=== PATIENT | female | born 1940 | race Caucasian/White ===

== ENCOUNTER → 2018-03-05 08:48 | Outpatient (CLI) | payer MEDICARE, OTHER, SELFPAY ==
--- NOTE | 2018-03-05 08:56 | CDU_ITS ---
Reason For Study: Carotid stenosis Rt. Velocities/BP Lt. Velocities/BP Prox CCA 118.0/23.5 cm/sec. Prox CCA 85.6/24.0 cm/sec. Mid CCA 120.0/21.7 cm/sec. Mid CCA 76.2/19.3 cm/sec. Dist CCA 96.2/24.0 cm/sec. Dist CCA 91.5/19.3 cm/sec. Prox ICA 234.0/62.9 cm/sec. Prox ICA 139.0/36.3 cm/sec. Mid ICA 158.0/28.4 cm/sec. Mid ICA 80.0/23.8 cm/sec. Dist ICA 95.4/27.2 cm/sec. Dist ICA 89.1/21.2 cm/sec. Rt. ICA/CCA = 1.9. Lt. ICA/CCA = 1.8. Prox ECA 190.0/19.4 cm/sec. Prox ECA 172.0/13.7 cm/sec. Rt. Vert. 185.0/30.4 cm/sec. Right Extracranial There is heterogeneous, irregular atherosclerotic plaque noted in the right common carotid artery. There is heterogeneous, irregular atherosclerotic plaque noted in the right internal carotid artery. There is heterogeneous, irregular atherosclerotic plaque noted in the right external carotid artery. Left Extracranial There is heterogeneous, irregular atherosclerotic plaque noted in the left common carotid artery. There is heterogeneous, smooth atherosclerotic plaque noted in the left internal carotid artery. There is heterogeneous, irregular atherosclerotic plaque noted in the left external carotid artery. LTVERTartery is retrograde. Procedure Carotid Duplex [id number]. Exam performed in department. Interpretation Summary Moderate (50-69%) stenosis right extracranial internal carotid. Moderate (50-69%) stenosis left extracranial internal carotid. Flow within the right verterbral artery is antegrade. Flow within the left verterbral artery is retrograde, consistent with a subclavian steal phenomenon. Ordering Physician: ABEBA PULLIAM Referring Physician: Flory Slaughter M.D. Performed By: Barbara Guardado RVT
== END ==
PROVIDERS: Family Provider Internal Medicine; PCP Internal Medicine; Referring Provider Surgery Vascular Surgery; Visit Provider Surgery Vascular Surgery
DX: I65.23 Occlusion and stenosis of bilateral carotid arteries (principal)
CPT/HCPCS: 93880

== ENCOUNTER → 2018-08-19 | Outpatient (CLI) | payer MEDICARE, OTHER, SELFPAY ==
[2018-08-19 15:54] LABS: CRP < 2.90 mg/L (0.0-3.0)
[2018-08-21 16:07] LABS: Endomysial Antibody IgA Negative (Negative)
[2018-08-23 14:04] LABS: Immunoglobulin A 81 mg/dL (64-422); t-Transglutaminase IgA <2 U/mL (0-3)
== END | disposition home or self-care (01) ==
LOC: MTLAB 13:48
PROVIDERS: Family Provider Internal Medicine; PCP Internal Medicine; Referring Provider Internal Medicine Gastroenterology; Visit Provider Internal Medicine Gastroenterology
DX: R19.7 Diarrhea, unspecified (principal)
CPT/HCPCS: 36415; 82784; 83516; 86140; 86255

== ENCOUNTER → 2018-12-21 14:18 | Outpatient (CLI) | payer MEDICARE, OTHER, SELFPAY ==
--- NOTE | 2018-12-21 14:29 | RAD_ITS ---
STUDY: X-RAY - LEFT ANKLE REASON FOR EXAM: Female, 78 years old. Pain. TECHNIQUE: 3 view(s) of the ankle. COMPARISON: None. FINDINGS: Normal visualized distal tibia and fibula. Normal medial and lateral malleoli. Normal tibiotalar articulation and ankle mortise. Small spur at insertion of the Achilles tendon. The visualized subtalar, talonavicular, calcaneocuboid and tarsal articulations are normal. The soft tissue structures are unremarkable. RAD/Ankle min 3 Views IMPRESSION: Soft tissue swelling. Electronically Signed: Emilio Miller, at 8:54 EDT , Service support ,
== END ==
PROVIDERS: Family Provider Internal Medicine; PCP Internal Medicine; Referring Provider Nurse Practitioner; Visit Provider Nurse Practitioner
DX: M25.572 Pain in left ankle and joints of left foot (principal)
CPT/HCPCS: 73610

== ENCOUNTER → 2019-03-30 | Outpatient (CLI) | payer MEDICARE, OTHER, SELFPAY ==
[2019-03-30 17:51] LABS: Protein, Urine (Random) 22.4 mg/dL (<11.9); Protein:Creat Ratio 720 mg/g CRE (0-200)
== END | disposition home or self-care (01) ==
LOC: POLAB3 15:02 → LABSPEC 15:03
PROVIDERS: PCP Internal Medicine; Visit Provider Internal Medicine Nephrology
DX: N18.3 Chronic kidney disease, stage 3 (moderate) (principal)
CPT/HCPCS: 82570; 84156

== ENCOUNTER → 2019-03-31 13:21 | Outpatient (CLI) | payer MEDICARE, OTHER, SELFPAY ==
--- NOTE | 2019-03-31 13:26 | US_ITS ---
STUDY: RENAL ULTRASOUND - COMPLETE REASON FOR EXAM: Female, 78 years old. Case 3 chronic kidney disease TECHNIQUE: Ultrasound evaluation of the kidneys was performed with real-time and static last-scale imaging. COMPARISON: None. FINDINGS: RIGHT KIDNEY: Normal location of the right kidney, which is normal in size. The right kidney measures 8.7 x 4.0 x 3.5 cm. There is diffuse thinning of the renal cortex. The renal cortex measures 1.0 cm. There is no right renal mass or cyst. There are no right renal calculi. There is no right hydronephrosis. DISTAL RIGHT URETER: There is non-visualization of the distal right ureter. There is no demonstrated right ureterovesical junction calculus. There is a visualized right ureteral jet. LEFT KIDNEY: Normal location of the left kidney, which is normal in size. The left kidney measures 9.1 x 3.6 x 4.3 cm. There is diffuse thinning of the renal cortex. The renal cortex measures 1.2 cm. Anechoic cortical cyst of the left kidney measures 1.1 cm. There are no left renal calculi. There is no left hydronephrosis. DISTAL LEFT URETER: There is non-visualization of the distal left ureter. There is no demonstrated left ureterovesical junction calculus. There is a visualized left ureteral jet. BLADDER: The urinary bladder is nondistended. There is no demonstrated mass within the urinary bladder. There are no demonstrated bladder calculi. US/Kidney and Bladder IMPRESSION: 1. No hydronephrosis. 2. Bilateral renal cortical thinning compatible with history provided of chronic kidney disease. 3. Simple left renal cyst. Electronically Signed: Klaus Aldrich MD ([place]) at 12:05 EST , Service support ,
== END ==
PROVIDERS: PCP Internal Medicine; Referring Provider Internal Medicine Nephrology; Visit Provider Internal Medicine Nephrology
DX: N18.3 Chronic kidney disease, stage 3 (moderate) (principal)
CPT/HCPCS: 76770

== ENCOUNTER → 2019-04-28 12:03 | Outpatient (CLI) | payer MEDICARE, OTHER, SELFPAY ==
[2019-04-28 12:46] LABS: Hematocrit 45.5 % (37-47); Hemoglobin 14.9 g/dL (12.0-15.0); Mean Corp Hgb Conc 32.7 g/dL (32-36); Mean Corpuscular Hgb 28.4 pg (27.0-32.0); Mean Corpuscular Volume 86.8 fL (81-99); Mean Platelet Vol. 10.5 fl (6.2-12.0); Platelet Count 205 K/mm3 (150-450); RBC Distribution Width CV 14.3 % (11.6-14.6); RBC Distribution Width SD 45.3 fl (35.1-43.9); Red Blood Count 5.24 M/mm3 (4.2-5.4); White Blood Count 6.1 K/mm3 (4.4-11.0)
[2019-04-28 13:09] LABS: PTHIN 156.6 pg/mL (18.4-80.1)
[2019-04-28 13:10] LABS: BUN 33 mg/dL (7-18); BUN/Creat Ratio 19.9 RATIO (10-20); Calcium,Total 9.2 mg/dL (8.5-10.1); Chloride 105 mmol/L (98-107); Creatinine, Serum 1.66 mg/dL (0.55-1.02); EST Glomerular Filtration Rate 32 mL/min (>60); Est Glom Filt Rate - Afr Amer 39 mL/min (>60); Glucose 140 mg/dL (74-106); Phosphorus 3.5 mg/dL (2.5-4.9); Potassium 3.8 mmol/L (3.5-5.1); Sodium Level 139 mmol/L (136-145)
[2019-04-28 13:14] LABS: 24 Hour Urine Protein 513.4 mg/24HR (<150 MG/24HR); 24HR. UA Prot. Total Volume 1575 mL; Urine Protein (24 Hour) 32.6 mg/dL (<11.9)
[2019-04-28 13:16] LABS: Creat.Clear Total Volume 1575 mL; Creatinine Clearance 30 ml/min (100-200); Creatinine Serum Creat 1.7 mg/dL (0.6-1.0); Creatinine Urine 45.9 mg/dL (NO RANGE EST.); EST Glomerular Filtration Rate 32 mL/min (>60); Est Glom Filt Rate - Afr Amer 39 mL/min (>60)
== END ==
LOC: LABSPEC 12:05 → LAB 12:54
PROVIDERS: PCP Internal Medicine; Referring Provider Internal Medicine Nephrology; Visit Provider Internal Medicine Nephrology
DX: N18.3 Chronic kidney disease, stage 3 (moderate) (principal)
CPT/HCPCS: 36415; 80069; 81050; 82575; 83970; 84156; 85027

== ENCOUNTER → 2019-07-20 12:52 | Outpatient (CLI) | payer MEDICARE, OTHER, SELFPAY ==
--- NOTE | 2019-07-20 12:58 | CDU_ITS ---
Reason For Study: carotid stenosis Rt. Velocities/BP Lt. Velocities/BP Prox CCA 113.8/14.7 cm/sec. Prox CCA 74.0/16.8 cm/sec. Mid CCA 117.8/18.6 cm/sec. Mid CCA 88.2/21.2 cm/sec. Dist CCA 95.6/16.0 cm/sec. Dist CCA 88.2/24.5 cm/sec. Prox ICA 252.0/55.2 cm/sec. Prox ICA 127.9/24.8 cm/sec. Mid ICA 179.5/29.3 cm/sec. Mid ICA 132.3/24.8 cm/sec. Dist ICA 182.1/39.6 cm/sec. Dist ICA 81.4/18.2 cm/sec. Rt. ICA/CCA = 2.1. Lt. ICA/CCA = 1.5. Prox ECA 179.5/16.3 cm/sec. Prox ECA 147.7/5.0 cm/sec. Rt. Vert. 107.0/16.3 cm/sec. Right Extracranial There is heterogeneous, irregular atherosclerotic plaque noted in the right common carotid artery. There is heterogeneous, irregular atherosclerotic plaque noted in the right internal carotid artery. There is heterogeneous, irregular atherosclerotic plaque noted in the right external carotid artery. Antegrade flow is noted in the right vertebral artery. Left Extracranial There is heterogeneous, irregular atherosclerotic plaque noted in the left common carotid artery. There is heterogeneous, irregular atherosclerotic plaque noted in the left internal carotid artery. There is heterogeneous, irregular atherosclerotic plaque noted in the left external carotid artery. Retrograde flow noted in the left vertebral artery. Procedure Carotid Duplex [id number]. The exam was diagnostic. Exam performed in department. Interpretation Summary Severe (>70%) stenosis right extracranial internal carotid. Mild (<50%) stenosis left extracranial internal carotid. Flow within the right verterbral artery is antegrade. Flow within the left verterbral artery is retrograde, consistent with a subclavian steal phenomenon. Ordering Physician: Gricelda Rooney Performed By: Gustavo Alvarez RVT
== END ==
PROVIDERS: PCP Internal Medicine; Referring Provider Nurse Practitioner Primary Care; Visit Provider Nurse Practitioner Primary Care
DX: I65.23 Occlusion and stenosis of bilateral carotid arteries (principal)
CPT/HCPCS: 93880

== ENCOUNTER → 2019-09-08 13:06 | Outpatient (CLI) | payer MEDICARE, OTHER, SELFPAY ==
[2019-09-08 16:24] LABS: Protein, Urine (Random) 89.8 mg/dL (<11.9); Protein:Creat Ratio 702 mg/g CRE (0-200)
[2019-09-08 16:30] LABS: Albumin, Serum 3.8 g/dL (3.2-5.0); BUN 34 mg/dL (7-18); BUN/Creat Ratio 18.9 RATIO (10-20); Calcium,Total 8.9 mg/dL (8.5-10.1); Chloride 107 mmol/L (98-107); EST Glomerular Filtration Rate 29 mL/min (>60); Est Glom Filt Rate - Afr Amer 35 mL/min (>60); Glucose 183 mg/dL (74-106); Phosphorus 3.6 mg/dL (2.5-4.9); Potassium 3.7 mmol/L (3.5-5.1); Sodium Level 140 mmol/L (136-145)
== END ==
PROVIDERS: PCP Internal Medicine; Referring Provider Internal Medicine Nephrology; Visit Provider Internal Medicine Nephrology
DX: N18.3 Chronic kidney disease, stage 3 (moderate) (principal); R80.9 Proteinuria, unspecified
CPT/HCPCS: 36415; 80069; 82570; 84156

== ENCOUNTER → 2019-11-03 15:35 | Outpatient (CLI) | payer MEDICARE, OTHER, SELFPAY ==
[2019-11-03 19:03] LABS: Protein, Urine (Random) 106.5 mg/dL (<11.9); Protein:Creat Ratio 2500 mg/g CRE (0-200)
[2019-11-03 19:26] LABS: Albumin, Serum 3.6 g/dL (3.2-5.0); BUN 26 mg/dL (7-18); Calcium,Total 8.6 mg/dL (8.5-10.1); Chloride 102 mmol/L (98-107); Creatinine, Serum 1.37 mg/dL (0.55-1.02); EST Glomerular Filtration Rate 40 mL/min (>60); Est Glom Filt Rate - Afr Amer 48 mL/min (>60); Glucose 115 mg/dL (74-106); Phosphorus 3.1 mg/dL (2.5-4.9); Potassium 3.9 mmol/L (3.5-5.1); Sodium Level 137 mmol/L (136-145)
== END ==
PROVIDERS: PCP Internal Medicine; Referring Provider Internal Medicine Nephrology; Visit Provider Internal Medicine Nephrology
DX: N18.3 Chronic kidney disease, stage 3 (moderate) (principal); R80.9 Proteinuria, unspecified
CPT/HCPCS: 36415; 80069; 82570; 84156

== ENCOUNTER 2019-12-24 14:39 | Emergency (ER) | payer MEDICARE, OTHER, SELFPAY ==
[2019-12-24] VITALS (9 sets, daily range): BP systolic 106–230; BP diastolic 51–94; PULSE 73–106; RESP 18–25; TEMP 36.6; O2SAT 95–99; BMI 31.8; BMI 32.8
--- NOTE | 2019-12-24 14:45 | RAD_ITS ---
STUDY: X-RAY CHEST REASON FOR EXAM: Female, 79 years old. Shortness of breath TECHNIQUE: Single AP portable view of the chest. COMPARISON: None. FINDINGS: EKG electrodes are seen. Hyperinflation. The lungs are clear. There is no demonstrated pleural abnormality. Normal size heart. Normal mediastinum and carmela. Normal visualized pulmonary arteries. Normal visualized aortic arch and descending thoracic aorta. There are degenerative changes of the visualized thoracic spine. Normal visualized ribs, clavicles, and shoulders. There is no demonstrated abnormality of the visualized soft tissue structures of the upper abdomen. RAD/Chest 1 View IMPRESSION: Hyperinflation. Electronically Signed: Emilio Miller, at 15:27 EDT , Service support ,
--- NOTE | 2019-12-24 14:45 | CT_ITS ---
STUDY: CT BRAIN WITHOUT CONTRAST REASON FOR EXAM: Female, 79 years old. STROKE/DIZZY/WEAK RADIATION DOSAGE (If Supplied By Facility): CTDIvol = ( 44.99 ) mGy, DLP = ( 796.11 ) mGycm TECHNIQUE: Transaxial CT imaging of the brain was performed without administration of intravenous contrast material. Individualized dose optimization techniques were used for this CT. COMPARISON: No relevant priors. FINDINGS: Normal soft tissue structures. Normal calvarium. There is mild cerebral atrophy with widening of the extra-axial spaces and ventricular dilatation. There are areas of decreased attenuation within the white matter tracts of the supratentorial brain, consistent with microvascular disease changes. Normal basal ganglia and thalami. Normal brainstem. Normal cerebellum. There is no intracranial hemorrhage. There are no findings of an acute ischemic infarction. Normal visualized paranasal sinuses. CT/Brain/Head without Contrast IMPRESSION: Chronic involutional changes of the brain. Electronically Signed: Emilio Miller, at 15:21 EDT , Service support ,
--- NOTE | 2019-12-24 14:45 | EKG12_ITS ---
Test Reason : Blood Pressure : / mmHG Vent. Rate : 080 BPM Atrial Rate : 080 BPM P-R Int : 136 ms QRS Dur : 084 ms QT Int : 398 ms P-R-T Axes : 059 -19 032 degrees QTc Int : 459 ms Normal sinus rhythm Minimal voltage criteria for LVH, may be normal variant Borderline ECG Confirmed by ADALBERTO CAUSEY, CECELIA ([id number]), editor in chief MALIK VILLAFANA ([id number]) on 12/28/2019 11:13:44 AM Referred By: MOOSE Confirmed By:CECELIA GLOVER MD
--- NOTE | 2019-12-24 15:06 | ED.VIS.GEN ---
History of Present Illness Informant: Patient Onset: Days Narrative: 79 year old female with PMH HTN, HLD, CKD, left carotid endarterectomy presents with vision changes and left arm weakness x1 week. One week ago she started having has intermittent blurry vision in both eyes. No complete vision loss or diplopia. She also noticed that her left hand is weak and she has been dropping her coffee cup. She is right-hand dominant. Denies paresthesia, numbness, or tingling. No leg weakness although she did fall 1 week ago but attributes this to tripping over her dog. No head injury or LOC. Today she felt confused when dialing her friend's phone number. Denies headache, nausea, vomiting, chest pain, shortness of breath, abdominal pain, or diarrhea. No history of stroke/TIA. She was told she needs a right carotid endarterectomy. <Saskia Prather - Last Filed: 12/24/19 16:46> <Theodore Hollins - Last Filed: 12/24/19 16:56> Chief Complaint: Neuro S/Sx Past Medical History Past Medical History: - - hypertension, hyperlipidemia, chronic kidney disease, L carotid endarterectomy Surgical History: total hip arthroplasty, total knee arthroplasty Smoking Status: Never smoker <Saskia Prather - Last Filed: 12/24/19 16:46> <Theodore Hollins - Last Filed: 12/24/19 16:56> - Allergies and Home Meds Allergies/Adverse Reactions: Allergies No Known Allergies Allergy (Verified 12/24/19 14:44) Primary Care Physician: Flory Slaughter DO [Primary Care Provider] - Review of Systems General: Denies: Chills, Fever, Sweats Eyes: Reports: Blurred Vision - bilaterally. Denies: Diplopia ENT: Denies: Rhinorrhea, Sore throat Cardiovascular: Denies: Chest pain, Palpitations Respiratory: Denies: Dyspnea, Cough, Dyspnea on exertion Gastrointestinal: Denies: Abdominal pain, Nausea, Vomiting, Diarrhea, Melena, Hematochezia Genitourinary: Denies: Dysuria, Hematuria, Frequency Musculoskeletal: Denies: Neck pain, Back pain, Extremity Pain Skin: Denies: Rash, Wounds Neurological: Reports: Weakness. Denies: Headache, Parasthesia, Numbness <Saskia Prather - Last Filed: 12/24/19 16:46> Physical Exam Vital Signs/Narrative: Vital Signs Temp Pulse Resp BP Pulse Ox 12/24/19 14:40 97.8 F 85 18 222/94 H 97 Inital Vital Signs reviewed: Yes General: Well nourished, Well developed, No Acute Distress Head: Normocephalic, Atraumatic Eyes: Perrl, EOMI, - - visual hodges intact ENT: Moist mucous membranes, No rhinorrhea Neck: Supple, Nontender Cardiovascular: Regular rate, Regular rhythm, No murmurs Respiratory: No distress, CTA bilaterally, Chest nontender Abdomen: Soft, Nontender, Nondistended Back: Nontender, Normal Inspection Extremities: Nontender, No edema Skin: Normal color, No rash Neurological: Alert, Oriented x3, Cranial nerves II-XII grossly intact, Normal Sensation, - - 4/5 left elementary math tutor strength, otherwise normal strength in bilateral UE/LE. Sensation intact. No UE/LE drift. Psychological: Normal affect, Normal Mood <Saskia Prather - Last Filed: 12/24/19 16:46> Vital Signs/Narrative: Vital Signs Temp Pulse Resp BP Pulse Ox 12/24/19 16:15 80 18 106/71 96 12/24/19 15:39 77 18 163/70 H 95 12/24/19 15:15 80 25 H 158/72 H 96 12/24/19 14:40 97.8 F 85 18 222/94 H 97 <Theodore Hollins - Last Filed: 12/24/19 16:56> Diagnostic/Tx/Re-eval Clinical Impression(s) from Imaging Studies Brain CT 12/24/19 14:45 IMPRESSION: Chronic involutional changes of the brain. Electronically Signed: Emilio Miller, at 15:21 EDT , Service support , Chest X-Ray 12/24/19 14:45 IMPRESSION: Hyperinflation. Electronically Signed: Emilio Miller, at 15:27 EDT , Service support , Laboratory Data 12/24/19 12/24/19 12/24/19 15:00 15:00 15:00 WBC 9.0 RBC 5.13 Hgb 14.7 Hct 45.3 MCV 88.3 MCH 28.7 MCHC 32.5 RDW Std Deviation 42.9 RDW Coeff of Nimo 13.3 Plt Count 282 MPV 10.2 Immature Gran % (Auto) 0.400 Neut % (Auto) 69.0 Lymph % (Auto) 22.3 Sumner % (Auto) 6.3 Eos % (Auto) 1.3 Baso % (Auto) 0.7 Absolute Neuts (auto) 6.2 Absolute Lymphs (auto) 2.01 Nucleated RBC % 0 PT 12.3 INR 1.0 APTT 26.5 Sodium 138 Potassium 3.8 Chloride 102 Carbon Dioxide 27.0 Anion Gap 9 BUN 28 H Creatinine 1.59 H Estim Creat Clear Calc 23.44 Est GFR (MDRD) Af Amer 40 L Est GFR (MDRD) Non-Af 33 L BUN/Creatinine Ratio 17.6 Glucose 215 H Calcium 9.7 Troponin I < 0.015 - Rhythm Strip Rhythm Strip: Sinus Rhythm Rate: 80 - borderline LVH, may be normal variant - Medical Decision Making Patient presented with 1 week of intermittent blurry vision, left hand weakness, and episodes of confusion. Vital signs show BP of 222/94, otherwise normal. BP improved to 163/70 without intervention. She has 4/5 left elementary math tutor strength, otherwise normal neurological exam. NIH is zero. Labs shows creatinine of 1.6 which is baseline, otherwise within normal limits. CT head is negative for acute process. CXR normal. Patient's carotid duplex from 07/13 was reviewed which showed > 70% in [place]. This is most likely the etiology of her left sided symptoms. She needs admitted for a stroke work up and since her vascular surgeon is at [facility] I feel it is best she is transferred there. Patient was accepted by the hospitalist, Dr. Daly, and was transferred to [facility] in stable condition. <Saskia Prather - Last Filed: 12/24/19 16:46> - Medical Decision Making Patient was seen with me. I did a [id number] examination with the patient. Patient presents with 1 week history of blurry vision, and left hand weakness. Patient has a history of right carotid stenosis and is being followed by vascular surgeon at [facility]. Patient states they have been putting off having a right carotid endarterectomy because of her kidney disease. Patient states she had a left carotid endarterectomy 3 to 4 years ago. Patient states she has been dropping things with her left hand. Patient also admits to some tingling in both years. Patient denies any difficulty breathing or difficulty swallowing. Patient denies any leg weakness. Vital signs are stable. Patient is afebrile. Patient is in no acute distress. Oral mucosa is pink and moist. Neck is supple. Trachea is midline. There is no JVD. Heart was regular rate and rhythm. Lungs are clear and equal bilaterally. Abdomen is soft. Bowel sounds are normal. Cranial nerves II through XII are intact. Strength is 5/5 bilateral in the upper and lower extremities. There are no sensory deficits noted. CT scan of the brain was obtained. There is no acute intracranial abnormality noted. This was interpreted by the radiologist and reviewed by myself. Chest x-ray was obtained and did not show any acute cardiopulmonary process. CBC and metabolic profile were obtained. Creatinine was slightly elevated but is consistent with prior results. Case was discussed with the transfer center at [facility]. Patient will be transferred there under the service of Dr Daly. Patient understands and is agreeable with the plan. All questions were answered. <Theodore Hollins - Last Filed: 12/24/19 16:56> ED Disposition <Saskia Prather - Last Filed: 12/24/19 16:46> <Theodore Hollins - Last Filed: 12/24/19 16:56> - Plan for ED Patient: Disposition: [facility] Diagnosis: CVA (cerebral vascular accident), Carotid stenosis, right Referrals: Flory Slaughter DO [Primary Care Provider] -
[2019-12-24 15:23] LABS: Absolute Lymphocyte Count 2.01 X10^3/uL (0.83-4.51); Absolute Neutrophil Count 6.2 X10^3/uL (2.0-7.7); Basophil# 0.06 X10^3/uL; Basophil% 0.7 % (0-1); Eosinophil# 0.12 X10^3/uL; Eosinophils% 1.3 % (0-5); Hematocrit 45.3 % (37-47); Hemoglobin 14.7 g/dL (12.0-15.0); Lymphocyte # 2.01 X10^3/ul (4.0); Lymphocyte % 22.3 % (19-41); Mean Corp Hgb Conc 32.5 g/dL (32-36); Mean Corpuscular Hgb 28.7 pg (27.0-32.0); Mean Corpuscular Volume 88.3 fL (81-99); Mean Platelet Vol. 10.2 fl (6.2-12.0); Monocyte# 0.57 X10^3/uL; Monocyte% 6.3 % (0-10); NRBC Flagged by Analyzer 0 % (0-5); Neutrophil # 6.21 X10^3/uL (2.7-7.7); Platelet Count 282 K/mm3 (150-450); RBC Distribution Width CV 13.3 % (11.6-14.6); RBC Distribution Width SD 42.9 fl (35.1-43.9); Red Blood Count 5.13 M/mm3 (4.2-5.4)
[2019-12-24 15:43] LABS: Anion Gap 9 (5-15); BUN 28 mg/dL (7-18); BUN/Creat Ratio 17.6 RATIO (10-20); Calcium,Total 9.7 mg/dL (8.5-10.1); Chloride 102 mmol/L (98-107); Creatinine, Serum 1.59 mg/dL (0.55-1.02); EST Glomerular Filtration Rate 33 mL/min (>60); Est Glom Filt Rate - Afr Amer 40 mL/min (>60); Estimated Creatinine Clearance 23.44 ml/min; Glucose 215 mg/dL (74-106); Potassium 3.8 mmol/L (3.5-5.1); Sodium Level 138 mmol/L (136-145)
[2019-12-24 15:49] LABS: Prothrombin Time (Protime)PT. 12.3 SECONDS (11.7-14.9)
[2019-12-24 15:50] LABS: Partial Thromboplast Time 26.5 Seconds (24.1-36.2)
--- NOTE | 2019-12-24 17:47 | NURSING ---
YESSENIA BUENO [id number] NURSE TO NURSE [phone]
--- NOTE | 2019-12-24 17:54 | NURSING ---
CALLED [facility], ETA IS 2 HRS
== END 2019-12-24 21:26 | disposition short-term general hospital (02) ==
PROVIDERS: Emergency Medicine; Emergency Provider Physician Assistant; PCP Internal Medicine
DX: I63.231 Cerebral infarction due to unspecified occlusion or stenosis of right carotid arteries (principal); G83.24 Monoplegia of upper limb affecting left nondominant side; H53.8 Other visual disturbances; I12.9 Hypertensive chronic kidney disease with stage 1 through stage 4 chronic kidney disease, or unspecified chronic kidney disease; N18.9 Chronic kidney disease, unspecified; E78.5 Hyperlipidemia, unspecified; Z79.899 Other long term (current) drug therapy
CPT/HCPCS: 70450; 71045; 80048; 84484; 85025; 85610; 85730; 93005; 99284

== ENCOUNTER → 2020-04-04 15:34 | Outpatient (CLI) | payer MEDICARE, OTHER, SELFPAY ==
[2019-12-24 15:47] VITALS: BMI 32.8
[2020-04-04 18:36] LABS: Albumin, Serum 3.9 g/dL (3.2-5.0); BUN 29 mg/dL (7-18); BUN/Creat Ratio 17.7 RATIO (10-20); Calcium,Total 9.5 mg/dL (8.5-10.1); Chloride 100 mmol/L (98-107); Creatinine, Serum 1.64 mg/dL (0.55-1.02); EST Glomerular Filtration Rate 32 mL/min (>60); Est Glom Filt Rate - Afr Amer 39 mL/min (>60); Glucose 145 mg/dL (74-106); Phosphorus 3.6 mg/dL (2.5-4.9); Sodium Level 136 mmol/L (136-145)
== END ==
PROVIDERS: PCP Internal Medicine; Referring Provider Internal Medicine Nephrology; Visit Provider Internal Medicine Nephrology
DX: N18.30 Chronic kidney disease, stage 3 unspecified (principal)
CPT/HCPCS: 36415; 80069

== ENCOUNTER → 2020-05-16 14:43 | Outpatient (CLI) | payer MEDICARE, OTHER, SELFPAY ==
[2019-12-24 15:47] VITALS: BMI 32.8
[2020-05-16 18:34] LABS: Albumin, Serum 3.7 g/dL (3.2-5.0); BUN 31 mg/dL (7-18); BUN/Creat Ratio 18.8 RATIO (10-20); Calcium,Total 9.2 mg/dL (8.5-10.1); Chloride 103 mmol/L (98-107); Creatinine, Serum 1.65 mg/dL (0.55-1.02); EST Glomerular Filtration Rate 32 mL/min (>60); Est Glom Filt Rate - Afr Amer 39 mL/min (>60); Glucose 124 mg/dL (74-106); Phosphorus 3.4 mg/dL (2.5-4.9); Potassium 4.3 mmol/L (3.5-5.1); Sodium Level 139 mmol/L (136-145)
[2020-05-16 18:41] LABS: Protein, Urine (Random) 53.5 mg/dL (<11.9); Protein:Creat Ratio 1621 mg/g CRE (0-200)
[2020-05-17 07:38] LABS: PTHIN 121.5 pg/mL (18.4-80.1)
== END ==
PROVIDERS: PCP Internal Medicine; Referring Provider Internal Medicine Nephrology; Visit Provider Internal Medicine Nephrology
DX: N18.30 Chronic kidney disease, stage 3 unspecified (principal); R80.9 Proteinuria, unspecified; E21.1 Secondary hyperparathyroidism, not elsewhere classified
CPT/HCPCS: 36415; 80069; 82570; 83970; 84156

== ENCOUNTER → 2020-06-06 09:53 | Outpatient (CLI) | payer MEDICARE, OTHER, SELFPAY ==
[2019-12-24 15:47] VITALS: BMI 32.8
--- NOTE | 2020-06-06 09:56 | RDU_ITS ---
Reason For Study: HTN Right Renal Artery Left Renal Artery Right renal artery ostium Left renal artery ostium 181.2/24.3 196.9/24.3 RSV/EDV. PSV/EDV. Right renal artery proximal Left renal artery proximal PSV/EDV 196.9/32.2 PSV/EDV. 212.6/24.3 . Right renal artery mid 142.3/25.7 Left renal artery mid 161.6/28.2 PSV/EDV. PSV/EDV . Right renal artery distal Left renal artery distal 186.3/41.2 147.5/20.5 PSV/EDV. PSV/EDV. Right Renal Parenchyma Left Renal Parenchyma Upper Pole Medula 17.7/4.2 PSV/EDV. Left upper pole medulla 41.6/7.6 Right upper pole medulla EDR .24 . PSV/EDV . Right upper pole medulla R.I. .76 . Left upper pole medulla EDR .18 . Upper Reid Cortx 18.4/6.1 PSV/EDV. Left upper pole medulla R.I. .82 . Right upper pole cortex EDR .33 . UP Cortex 18.5/7.6 PSV/EDV. Right upper pole cortex R.I. .67 . Left upper pole cortex EDR .41 . Right lower Pole medulla 30.6/7.3 Left upper pole cortex R.I. .59 . PSV/EDV . Left lower Pole medulla 55.8/14.2 Right lower pole medulla EDR .24 . PSV/EDV . Right lower pole medulla R.I. .76 . Left lower pole medulla EDR .25 . Lower Pole Cortex 14.7/5.5 PSV/EDV. Left lower pole medulla R.I. .75 . Right lower pole cortex EDR .37 . Lower Pole Cortx 19.1/5.4 PSV/EDV. Right lower pole cortex R.I. .63 . Left lower pole cortex EDR .28 . Right Renal Hilar Left lower pole cortex R.I. .72 . Right hilar acceleration time 30 Left Renal Hilar m/sec. Left hilar acceleration time 50 Right Hilar avg 54.8/8.7 PSV/EDV. m/sec. Right Renal Dimensions LT Hilar avg 47.4/10.9 PSV/EDV . Right kidney size 9.07 cm . Left Renal Dimensions Right cortical dimension 1.29 cm . Left kidney size 9.03 cm . Left cortical dimension .85 cm . Aorta Proximal abdominal aorta .83 x .85 cm . Proximal abdominal aorta peak systolic velocity is 201.2 cm/sec . Distal abdominal aorta .74 x .81 cm . Distal abdominal aorta peak systolic velocity is 220.5 cm/sec . Normal renal veins bilat. VL/Renal Artery Duplex Ultrasound Interpretation Summary The dimensions of the intra-abdominal aorta are smaller than normal, though the aorta appears to be patent. Right ostial and proximal renal artery velocities are elevated. Left os tial, proximal, and distal renal artery velocities are elevated. Acceleration times are normal bila terally. The right cortical dimension is normal. The left cortical dimension is decreased. Kidneys appear normal in size bilaterally. Although renal artery velocities are elevated bilaterally, it appears to be due to factors other than stenosis. For example, velocities in the intra-abdominal aor ta are also elevated, and may suggest a hyperdynamic cardiovascular state. Hemodynamically-significan t renal artery stenosis is not suspected. Clinical correlation is advised. Ordering Physician: Kayla Saba Performed By: Gustavo Alvarez RVDelmar
== END ==
PROVIDERS: PCP Internal Medicine; Referring Provider Internal Medicine Nephrology; Visit Provider Internal Medicine Nephrology
DX: I12.9 Hypertensive chronic kidney disease with stage 1 through stage 4 chronic kidney disease, or unspecified chronic kidney disease (principal); N18.30 Chronic kidney disease, stage 3 unspecified; R80.9 Proteinuria, unspecified
CPT/HCPCS: 36415; 80069; 82570; 84156; 93975

== ENCOUNTER → 2020-06-06 10:29 | Outpatient (CLI) | payer MEDICARE, OTHER, SELFPAY ==
[2019-12-24 15:47] VITALS: BMI 32.8
[2020-06-06 12:06] LABS: Albumin, Serum 3.9 g/dL (3.2-5.0); BUN 30 mg/dL (7-18); BUN/Creat Ratio 18.6 RATIO (10-20); Calcium,Total 9.5 mg/dL (8.5-10.1); Chloride 104 mmol/L (98-107); Creatinine, Serum 1.61 mg/dL (0.55-1.02); EST Glomerular Filtration Rate 33 mL/min (>60); Est Glom Filt Rate - Afr Amer 40 mL/min (>60); Glucose 138 mg/dL (74-106); Potassium 4.5 mmol/L (3.5-5.1); Sodium Level 139 mmol/L (136-145)
[2020-06-06 12:32] LABS: Protein, Urine (Random) 172.5 mg/dL (<11.9); Protein:Creat Ratio 2556 mg/g CRE (0-200)
== END ==
PROVIDERS: PCP Internal Medicine; Referring Provider Internal Medicine Nephrology; Visit Provider Internal Medicine Nephrology
DX: I12.9 Hypertensive chronic kidney disease with stage 1 through stage 4 chronic kidney disease, or unspecified chronic kidney disease (principal); N18.30 Chronic kidney disease, stage 3 unspecified; R80.9 Proteinuria, unspecified
CPT/HCPCS: 36415; 80069; 82570; 84156

== ENCOUNTER → 2020-07-03 10:01 | Outpatient (CLI) | payer MEDICARE, OTHER, SELFPAY ==
[2019-12-24 15:47] VITALS: BMI 32.8
--- NOTE | 2020-07-03 10:02 | CDU_ITS ---
Reason For Study: S/P right carotid endarectomy Rt. Velocities/BP Lt. Velocities/BP Prox CCA 115.6/13.3 cm/sec. Prox CCA 79.1/15.2 cm/sec. Mid CCA 161.3/18.8 cm/sec. Mid CCA 87.6/15.1 cm/sec. Dist CCA 176.2/20.4 cm/sec. Dist CCA 108.4/20 cm/sec. Prox ICA 169.1/18.9 cm/sec. Prox ICA 114.8/13.8 cm/sec. Mid ICA 118.8/22.2 cm/sec. Mid ICA 86.1/19.6 cm/sec. Dist ICA 95.5/17 cm/sec. Dist ICA 100.8/20.5 cm/sec. Rt. ICA/CCA = 1.05. Lt. ICA/CCA = 1.31. Prox ECA 218.4/11.1 cm/sec. Prox ECA 122.5 cm/sec. Rt. Vert. 94.9/18.8 cm/sec. Lt Vertebral Artery, Bidirectional Flow. Right Extracranial There is heterogeneous, irregular atherosclerotic plaque noted in the right common carotid artery. There is heterogeneous, irregular atherosclerotic plaque noted in the right internal carotid artery. There is heterogeneous, irregular atherosclerotic plaque noted in the right external carotid artery. Antegrade flow is noted in the right vertebral artery. Left Extracranial There is heterogeneous, irregular atherosclerotic plaque noted in the left common carotid artery. There is heterogeneous, irregular atherosclerotic plaque noted in the left internal carotid artery. There is heterogeneous, irregular atherosclerotic plaque noted in the left external carotid artery. Bidirectional flow noted in the left vertebral artery. Procedure Carotid Duplex [id number]. This is a Carotid Duplex examination using B-mode, color flow and specral Doppler. Exam performed in department. VL/Carotid Duplex Ultrasound Interpretation Summary Postoperative changes right carotid bulb and proximal internal carotid artery w ith small amount of plaque at the very proximal internal carotid artery. 50 to 69% stenosis right proximal internal carotid artery Greater than 50% stenosis right external carotid artery Postoperative changes left carotid bulb and proximal internal carotid artery wi th less than 50% stenosis of the internal carotid artery Less than 50% stenosis left external carotid artery Patent antegrade right vertebral artery Bidirectional flow left vertebral artery suspicious for proximal left subclavia n stenosis. Findings would suggest improvement in the right carotid bulb and proximal inter nal carotid artery from the previous examination of July 20, 2019 Ordering Physician: Gricelda Rooney Referring Physician: Flory Slaughter M.D. Performed By: Sallie Suarez RVT
== END ==
PROVIDERS: PCP Internal Medicine; Referring Provider Nurse Practitioner Primary Care; Visit Provider Nurse Practitioner Primary Care
DX: I65.23 Occlusion and stenosis of bilateral carotid arteries (principal); Z98.890 Other specified postprocedural states
CPT/HCPCS: 93880

== ENCOUNTER → 2020-08-16 14:08 | Outpatient (CLI) | payer MEDICARE, OTHER, SELFPAY ==
[2019-12-24 15:47] VITALS: BMI 32.8
[2020-08-16 18:05] LABS: Protein, Urine (Random) 160.9 mg/dL (<11.9); Protein:Creat Ratio 1518 mg/g CRE (0-200)
[2020-08-16 18:09] LABS: Albumin, Serum 3.7 g/dL (3.2-5.0); BUN 34 mg/dL (7-18); BUN/Creat Ratio 20.7 RATIO (10-20); Calcium,Total 9.3 mg/dL (8.5-10.1); Chloride 105 mmol/L (98-107); Creatinine, Serum 1.64 mg/dL (0.55-1.02); EST Glomerular Filtration Rate 32 mL/min (>60); Est Glom Filt Rate - Afr Amer 39 mL/min (>60); Glucose 148 mg/dL (74-106); Phosphorus 3.6 mg/dL (2.5-4.9); Potassium 4.2 mmol/L (3.5-5.1); Sodium Level 139 mmol/L (136-145)
== END ==
PROVIDERS: PCP Internal Medicine; Referring Provider Internal Medicine Nephrology; Visit Provider Internal Medicine Nephrology
DX: I12.9 Hypertensive chronic kidney disease with stage 1 through stage 4 chronic kidney disease, or unspecified chronic kidney disease (principal); N18.30 Chronic kidney disease, stage 3 unspecified; R80.9 Proteinuria, unspecified
CPT/HCPCS: 36415; 80069; 82570; 84156

== ENCOUNTER → 2020-10-03 13:49 | Outpatient (CLI) | payer MEDICARE, OTHER, SELFPAY ==
[2019-12-24 15:47] VITALS: BMI 32.8
--- NOTE | 2020-10-03 13:51 | ART_ITS ---
Reason For Study: PVD Procedure A bilateral upper extremity continuous wave Doppler with analog waveform analysis and segmental pressures. Left Segmental Pressures Left brachial= 137mmHg. Left forearm by way of the radial artery = 120mmHg. Left radial= 140mmHg. Left ulnar= 146mmHg. The left radial waveforms are monophasic. The left ulnar waveforms are monophasic. Right Segmental Pressures Right brachial= 187mmHg. Right ulnar= 200mmHg. Right radial= 190mmHg. Right forearm pressure by way of the radial artery = 200mmHg. The right radial waveforms are triphasic. The right ulnar waveforms are triphasic. Indices The right wrist-brachial index is 1.07. The left wrist-brachial index is .78. VL/Upper Extremity Arterial Study Interpretation Summary Normal right upper extremity radial and ulnar brachial indices of 1.02 and 1.07 respectively. Normal right radial and ulnar triphasic Doppler waveforms at rest Abnormal left upper extremity radial and ulnar brachial indices of 0.75 and 0.7 8 consistent with moderately severe disease. Left radial and ulnar Doppler waveforms monophasic c onsistent with a more severe level of disease. Ordering Physician: Flory Slaughter Performed By: Gustavo Alvarez RVT
== END ==
PROVIDERS: PCP Internal Medicine; Referring Provider Internal Medicine; Visit Provider Internal Medicine
DX: I73.9 Peripheral vascular disease, unspecified (principal)
CPT/HCPCS: 93923

== ENCOUNTER → 2020-12-18 15:26 | Outpatient (CLI) | payer MEDICARE, OTHER, SELFPAY ==
[2019-12-24 15:47] VITALS: BMI 32.8
[2020-12-18 17:48] LABS: Hematocrit 42.2 % (37-47); Hemoglobin 13.6 g/dL (12.0-15.0); Mean Corp Hgb Conc 32.2 g/dL (32-36); Mean Corpuscular Hgb 28.7 pg (27.0-32.0); Platelet Count 260 K/mm3 (150-450); RBC Distribution Width CV 13.5 % (11.6-14.6); RBC Distribution Width SD 43.6 fl (35.1-43.9); Red Blood Count 4.74 M/mm3 (4.2-5.4); White Blood Count 6.4 K/mm3 (4.4-11.0)
[2020-12-18 18:02] LABS: Albumin, Serum 3.5 g/dL (3.2-5.0); BUN 30 mg/dL (7-18); BUN/Creat Ratio 18.3 RATIO (10-20); Calcium,Total 9.2 mg/dL (8.5-10.1); Chloride 103 mmol/L (98-107); Creatinine, Serum 1.64 mg/dL (0.55-1.02); EST Glomerular Filtration Rate 32 mL/min (>60); Est Glom Filt Rate - Afr Amer 39 mL/min (>60); Glucose 149 mg/dL (74-106); Phosphorus 3.3 mg/dL (2.5-4.9); Sodium Level 140 mmol/L (136-145)
[2020-12-18 18:14] LABS: Protein:Creat Ratio 1491 mg/g CRE (0-200)
[2020-12-19 07:50] LABS: PTHIN 129.4 pg/mL (18.4-80.1)
== END ==
PROVIDERS: PCP Internal Medicine; Referring Provider Internal Medicine Nephrology; Visit Provider Internal Medicine Nephrology
DX: N18.32 Chronic kidney disease, stage 3b (principal); R80.9 Proteinuria, unspecified; E21.1 Secondary hyperparathyroidism, not elsewhere classified
CPT/HCPCS: 36415; 80069; 82570; 83970; 84156; 85027

== ENCOUNTER → 2021-07-10 | Outpatient (CLI) | payer MEDICARE, OTHER, SELFPAY ==
[2021-07-10 18:27] LABS: Protein, Urine (Random) 101.9 mg/dL (<11.9); Protein:Creat Ratio 1800 mg/g CRE (0-200)
[2021-07-10 18:29] LABS: PTHIN 99.7 pg/mL (18.4-80.1); Vitamin D,25 Hydroxy 45.6 ng/mL
[2021-07-10 18:31] LABS: Albumin, Serum 3.9 g/dL (3.2-5.0); BUN 36 mg/dL (7-18); BUN/Creat Ratio 22.1 RATIO (10-20); Calcium,Total 9.6 mg/dL (8.5-10.1); Chloride 105 mmol/L (98-107); Creatinine, Serum 1.63 mg/dL (0.55-1.02); EST Glomerular Filtration Rate 32 mL/min (>60); Est Glom Filt Rate - Afr Amer 39 mL/min (>60); Glucose 136 mg/dL (74-106); Phosphorus 3.1 mg/dL (2.5-4.9); Potassium 4.4 mmol/L (3.5-5.1); Sodium Level 139 mmol/L (136-145)
== END | disposition home or self-care (01) ==
LOC: MTLAB 14:45
PROVIDERS: PCP Internal Medicine; Referring Provider Internal Medicine Nephrology; Visit Provider Internal Medicine Nephrology
DX: E21.1 Secondary hyperparathyroidism, not elsewhere classified (principal); N18.32 Chronic kidney disease, stage 3b; R80.9 Proteinuria, unspecified
CPT/HCPCS: 36415; 80069; 82306; 82570; 83970; 84156

== ENCOUNTER → 2022-01-31 | Outpatient (CLI) | payer MEDICARE, OTHER, SELFPAY ==
[2022-01-31 17:57] LABS: Albumin, Serum 3.9 g/dL (3.2-5.0); BUN 35 mg/dL (7-18); BUN/Creat Ratio 17.7 RATIO (10-20); Calcium,Total 9.2 mg/dL (8.5-10.1); Chloride 103 mmol/L (98-107); Creatinine, Serum 1.98 mg/dL (0.55-1.02); EST Glomerular Filtration Rate 26 mL/min (>60); Est Glom Filt Rate - Afr Amer 31 mL/min (>60); Glucose 123 mg/dL (74-106); Phosphorus 4.2 mg/dL (2.5-4.9); Potassium 4.9 mmol/L (3.5-5.1); Sodium Level 140 mmol/L (136-145)
== END | disposition home or self-care (01) ==
LOC: MTLAB 15:34
PROVIDERS: PCP Internal Medicine; Referring Provider Internal Medicine Nephrology; Visit Provider Internal Medicine Nephrology
DX: N18.32 Chronic kidney disease, stage 3b (principal)
CPT/HCPCS: 36415; 80069; 83970

== ENCOUNTER → 2022-04-30 | Outpatient (CLI) | payer MEDICARE, OTHER, SELFPAY ==
[2022-04-30 17:59] LABS: Protein, Urine (Random) 72.1 mg/dL (<11.9); Protein:Creat Ratio 993 mg/g CRE (0-200)
[2022-04-30 18:18] LABS: Albumin, Serum 3.9 g/dL (3.2-5.0); BUN 30 mg/dL (7-18); BUN/Creat Ratio 15.2 RATIO (10-20); Calcium,Total 9.4 mg/dL (8.5-10.1); Chloride 102 mmol/L (98-107); Creatinine, Serum 1.98 mg/dL (0.55-1.02); EST Glomerular Filtration Rate 26 mL/min (>60); Est Glom Filt Rate - Afr Amer 31 mL/min (>60); Glucose 122 mg/dL (74-106); Phosphorus 3.9 mg/dL (2.5-4.9); Potassium 4.1 mmol/L (3.5-5.1); Sodium Level 138 mmol/L (136-145)
== END | disposition home or self-care (01) ==
PROVIDERS: PCP Internal Medicine; Referring Provider Internal Medicine Nephrology; Visit Provider Internal Medicine Nephrology
DX: N17.9 Acute kidney failure, unspecified (principal); E21.1 Secondary hyperparathyroidism, not elsewhere classified; N18.32 Chronic kidney disease, stage 3b; R80.9 Proteinuria, unspecified
CPT/HCPCS: 36415; 80069; 82570; 83970; 84156

== ENCOUNTER → 2022-10-22 | Outpatient (CLI) | payer MEDICARE, OTHER, SELFPAY ==
[2022-10-22 15:47] LABS: Albumin, Serum 3.7 g/dL (3.2-5.0); BUN 43 mg/dL (7-18); BUN/Creat Ratio 21.5 RATIO (10-20); Chloride 108 mmol/L (98-107); EST Glomerular Filtration Rate 26 mL/min (>60); Est Glom Filt Rate - Afr Amer 31 mL/min (>60); Glucose 119 mg/dL (74-106); Phosphorus 4.1 mg/dL (2.5-4.9); Potassium 5.1 mmol/L (3.5-5.1); Sodium Level 139 mmol/L (136-145)
[2022-10-22 15:58] LABS: Protein, Urine (Random) 41.5 mg/dL (<11.9); Protein:Creat Ratio 797 mg/g CRE (0-200)
== END | disposition home or self-care (01) ==
LOC: MTLAB 12:59
PROVIDERS: PCP Internal Medicine; Referring Provider Internal Medicine Nephrology; Visit Provider Internal Medicine Nephrology
DX: N18.32 Chronic kidney disease, stage 3b (principal); R80.9 Proteinuria, unspecified
CPT/HCPCS: 36415; 80069; 82570; 84156

== ENCOUNTER → 2023-04-02 | Outpatient (CLI) | payer MEDICARE, OTHER, SELFPAY ==
[2023-04-02 18:16] LABS: CRP < 2.90 mg/L (0.0-3.0)
[2023-04-04 15:09] LABS: Endomysial Antibody IgA Negative (Negative); Immunoglobulin A 86 mg/dL (64-422); t-Transglutaminase IgA <2 U/mL (0-3)
== END | disposition home or self-care (01) ==
LOC: MTLAB 16:09
PROVIDERS: PCP Internal Medicine; Referring Provider Internal Medicine Gastroenterology; Visit Provider Internal Medicine Gastroenterology
DX: R19.7 Diarrhea, unspecified (principal)
CPT/HCPCS: 36415; 82784; 83516; 86140; 86255

== ENCOUNTER → 2023-05-30 | Outpatient (CLI) | payer MEDICARE, OTHER, SELFPAY ==
[2023-05-30 12:17] LABS: Hematocrit 40.3 % (37-47); Hemoglobin 12.8 g/dL (12.0-15.0); Mean Corp Hgb Conc 31.8 g/dL (32-36); Mean Corpuscular Volume 94.4 fL (81-99); Platelet Count 267 K/mm3 (150-450); RBC Distribution Width CV 13.2 % (11.6-14.6); RBC Distribution Width SD 46.1 fl (35.1-43.9); Red Blood Count 4.27 M/mm3 (4.2-5.4); White Blood Count 7.4 K/mm3 (4.4-11.0)
[2023-05-30 12:32] LABS: PTHIN 234.2 pg/mL (18.4-80.1)
[2023-05-30 12:48] LABS: Protein, Urine (Random) 28.1 mg/dL (<11.9); Protein:Creat Ratio 881 mg/g CRE (0-200)
[2023-05-30 13:02] LABS: BUN 54 mg/dL (7-18); BUN/Creat Ratio 20.4 RATIO (10-20); Calcium,Total 8.6 mg/dL (8.5-10.1); Chloride 109 mmol/L (98-107); Creatinine, Serum 2.65 mg/dL (0.55-1.02); EST Glomerular Filtration Rate 18 mL/min (>60); Est Glom Filt Rate - Afr Amer 22 mL/min (>60); Glucose 129 mg/dL (74-106); Phosphorus 4.6 mg/dL (2.5-4.9); Potassium 4.5 mmol/L (3.5-5.1); Sodium Level 138 mmol/L (136-145)
== END | disposition home or self-care (01) ==
LOC: MTLAB 11:13
PROVIDERS: PCP Internal Medicine; Referring Provider Internal Medicine Nephrology; Visit Provider Internal Medicine Nephrology
DX: N18.32 Chronic kidney disease, stage 3b (principal); R80.9 Proteinuria, unspecified
CPT/HCPCS: 36415; 80069; 82570; 83970; 84156; 85027

== ENCOUNTER → 2023-09-04 | Outpatient (CLI) | payer MEDICARE, OTHER, SELFPAY ==
[2023-09-04 15:29] LABS: Mucous, Urine 0 SEEN /hpf (<or=2+); Red Blood Cells-Urine 0 SEEN /hpf (0-5)
[2023-09-04 17:49] LABS: Absolute Lymphocyte Count 2.86 X10^3/uL (0.83-4.51); Absolute Neutrophil Count 6.7 X10^3/uL (2.0-7.7); Basophil# 0.09 X10^3/uL; Basophil% 0.8 % (0-1); Eosinophil# 0.31 X10^3/uL; Eosinophils% 2.9 % (0-5); Hematocrit 40.4 % (37-47); Hemoglobin 13.1 g/dL (12.0-15.0); Lymphocyte # 2.86 X10^3/ul (0.83-4.51); Lymphocyte % 26.5 % (19-41); Mean Corp Hgb Conc 32.4 g/dL (32-36); Mean Corpuscular Hgb 29.4 pg (27.0-32.0); Mean Corpuscular Volume 90.6 fL (81-99); Mean Platelet Vol. 10.2 fl (6.2-12.0); Monocyte# 0.82 X10^3/uL; Monocyte% 7.6 % (0-10); NRBC Flagged by Analyzer 0 % (0-5); Neutrophil # 6.66 X10^3/uL (2.7-7.7); Neutrophil % 61.7 % (47-70); Platelet Count 255 K/mm3 (150-450); RBC Distribution Width CV 13.3 % (11.6-14.6); RBC Distribution Width SD 43.8 fl (35.1-43.9); Red Blood Count 4.46 M/mm3 (4.2-5.4); White Blood Count 10.8 K/mm3 (4.4-11.0)
[2023-09-04 17:50] LABS: Color, Urine Yellow (Yellow); Glucose, Dipstick 250 mg/dl (Normal); Ketone-Dipstick Negative (Negative); Leukocyte Esterase-Dipstick 500 /ul (Negative); Nitrite-Dipstick Negative (Negative); Occult Blood-Urine 10 /ul (Negative); Protein-Dipstick 100 mg/dl (Negative); Urine Bilirubin Dipstick Negative (Negative); Urine Clarity Clear (Clear); Urine Urobilinogen Normal (Normal)
[2023-09-04 18:05] LABS: Vitamin D,25 Hydroxy 36.6 ng/mL
[2023-09-04 18:11] LABS: Microalbumin:Creatinine Ratio 516.4 mg/g CRE (<30 mg/g CRE)
[2023-09-04 18:15] LABS: ALB/GLOB Ratio 1.1 RATIO (0.9-2.4); AST(SGOT) 22 U/L (15-37); Alanine Aminotransfer ALT/SGPT 23 U/L (13-56); Albumin, Serum 4.1 g/dL (3.2-5.0); Alkaline Phosphatase 59 U/L (45-117); Anion Gap 8 (5-15); BUN 53 mg/dL (7-18); BUN/Creat Ratio 21.3 RATIO (10-20); Calcium,Total 9.5 mg/dL (8.5-10.1); Chloride 105 mmol/L (98-107); Cholesterol 146 mg/dL (200); Creatinine, Serum 2.49 mg/dL (0.55-1.02); EST Glomerular Filtration Rate 20 mL/min (>60); Est Glom Filt Rate - Afr Amer 24 mL/min (>60); Globulin 3.6 g/dL (2.2-4.2); Glucose 113 mg/dL (74-106); High Density Lipoprotein 46 mg/dL; Potassium 4.6 mmol/L (3.5-5.1); Protein, Total 7.7 g/dL (6.4-8.2); Sodium Level 134 mmol/L (136-145); Thyroid Stim Hormone (TSH) 2.61 uIU/mL (0.358-3.74); Triglycerides 254 mg/dL; Very Low Density Lipoprotein 51 mg/dL (5-40)
[2023-09-04 18:26] LABS: Squamous Epithelial Cells - UA 0-5 SEEN /hpf (5-10); White Blood Cells 5-10 SEEN /hpf (0-5)
[2023-09-04 18:27] LABS: Bacteria 1+ /hpf (None Seen)
== END | disposition home or self-care (01) ==
LOC: MTLAB 15:26
PROVIDERS: PCP Internal Medicine; Referring Provider Internal Medicine; Visit Provider Internal Medicine
DX: R80.9 Proteinuria, unspecified (principal); E13.8 Other specified diabetes mellitus with unspecified complications; E55.9 Vitamin D deficiency, unspecified
CPT/HCPCS: 36415; 80053; 80061; 81001; 82043; 82306; 82570; 84443; 85025

== ENCOUNTER → 2023-09-29 | Outpatient (CLI) | payer MEDICARE, OTHER, SELFPAY ==
[2023-09-29 15:49] LABS: Albumin, Serum 3.6 g/dL (3.2-5.0); BUN 45 mg/dL (7-18); Calcium,Total 9.3 mg/dL (8.5-10.1); Chloride 108 mmol/L (98-107); EST Glomerular Filtration Rate 20 mL/min (>60); Est Glom Filt Rate - Afr Amer 24 mL/min (>60); Glucose 113 mg/dL (74-106); Phosphorus 4.8 mg/dL (2.5-4.9); Potassium 5.1 mmol/L (3.5-5.1); Sodium Level 138 mmol/L (136-145)
[2023-09-29 15:56] LABS: PTHIN 138.3 pg/mL (18.4-80.1); Vitamin D,25 Hydroxy 42.1 ng/mL
== END | disposition home or self-care (01) ==
LOC: MTLAB 13:37
PROVIDERS: PCP Internal Medicine; Referring Provider Internal Medicine Nephrology; Visit Provider Internal Medicine Nephrology
DX: N18.4 Chronic kidney disease, stage 4 (severe) (principal); E21.1 Secondary hyperparathyroidism, not elsewhere classified
CPT/HCPCS: 36415; 80069; 82306; 83970

== ENCOUNTER → 2023-12-29 | Outpatient (CLI) | payer MEDICARE, OTHER, SELFPAY ==
[2023-12-29 16:03] LABS: Albumin, Serum 3.6 g/dL (3.2-5.0); BUN 29 mg/dL (7-18); BUN/Creat Ratio 14.4 RATIO (10-20); Calcium,Total 8.9 mg/dL (8.5-10.1); Chloride 108 mmol/L (98-107); Creatinine, Serum 2.01 mg/dL (0.55-1.02); EST Glomerular Filtration Rate 25 mL/min (>60); Est Glom Filt Rate - Afr Amer 31 mL/min (>60); Glucose 113 mg/dL (74-106); Phosphorus 3.6 mg/dL (2.5-4.9); Potassium 4.4 mmol/L (3.5-5.1); Sodium Level 140 mmol/L (136-145)
== END | disposition home or self-care (01) ==
PROVIDERS: PCP Internal Medicine; Referring Provider Internal Medicine Nephrology; Visit Provider Internal Medicine Nephrology
DX: N18.4 Chronic kidney disease, stage 4 (severe) (principal)
CPT/HCPCS: 36415; 80069

== ENCOUNTER → 2024-08-04 | Outpatient (CLI) | payer MEDICARE, OTHER, SELFPAY ==
[2024-08-04 18:21] LABS: PTHIN 119 pg/mL (11-61)
[2024-08-04 18:36] LABS: Anion Gap 17 (5-15); BUN 41 mg/dL (4-19); BUN/Creat Ratio 17.9 RATIO (10-20); Calcium,Total 10.5 mg/dL (7.6-11.0); Chloride 102 mmol/L (98-108); Creatinine, Serum 2.27 mg/dL (0.70-1.20); EST Glomerular Filtration Rate 21 (>60); Glucose 90 mg/dL (70-99); Potassium 4.7 mmol/L (3.3-5.1); Sodium Level 137 mmol/L (133-145)
== END | disposition home or self-care (01) ==
PROVIDERS: PCP Internal Medicine; Referring Provider Internal Medicine Nephrology; Visit Provider Internal Medicine Nephrology
DX: N18.4 Chronic kidney disease, stage 4 (severe) (principal)
CPT/HCPCS: 36415; 80048; 83970

== ENCOUNTER → 2025-01-27 | Outpatient (CLI) | payer MEDICARE, OTHER, SELFPAY ==
[2025-01-27 10:59] LABS: PTHIN 129 pg/mL (11-61)
[2025-01-27 11:02] LABS: Albumin, Serum 4.4 g/dL (3.4-4.8); Anion Gap 14 (5-15); BUN 38 mg/dL (4-19); BUN/Creat Ratio 19.7 RATIO (10-20); Calcium,Total 10.1 mg/dL (7.6-11.0); Carbon Dioxide 23.9 mmol/L (21.0-32.0); Chloride 102 mmol/L (98-108); Glucose 110 mg/dL (70-99); Potassium 4.6 mmol/L (3.3-5.1)
== END | disposition home or self-care (01) ==
LOC: POLAB3 08:54
PROVIDERS: PCP Internal Medicine; Visit Provider Internal Medicine Nephrology
DX: N18.4 Chronic kidney disease, stage 4 (severe) (principal); E21.1 Secondary hyperparathyroidism, not elsewhere classified
CPT/HCPCS: 80069; 83970